=== PATIENT | male | born 1950 | race Caucasian/White ===

== ENCOUNTER 2017-10-15 12:48 | Emergency (ER) | payer OTHER ==
[2017-10-15 12:50] VITALS: O2SAT 100
[2017-10-15] MEDS ORDERED: LIDOCAINE HCL 1% PF 30 ML VIAL ONE (12:53)
[2017-10-15] MEDS ORDERED: IOHEXOL 350 MG/ML 10 ML VIAL (for RAD DIAG) IVCONTRAST ONE (13:13)
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
[2017-10-15] MEDS ORDERED: CEPH-460 PO ×2 (13:25→13:41)
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
[2017-10-15 13:29] LABS: AUTOMATED NEUTROPHIL # 10.6 TH/MM3 (1.8-7.7); BASOPHIL % 0.2 % (0.0-2.0); EOSINOPHIL # 0.1 TH/MM3 (0-0.4); EOSINOPHIL % 0.4 % (0.0-4.0); HEMATOCRIT 37.6 % (39.0-51.0); HEMOGLOBIN 12.9 GM/DL (13.0-17.0); LYMPH % 6.1 % (9.0-44.0); LYMPHOCYTE # 0.8 TH/MM3 (1.0-4.8); MEAN CELL VOLUME 88.5 FL (80.0-100.0); MEAN CORPUSCULAR HEMOGLOBIN 30.5 PG (27.0-34.0); MEAN CORPUSCULAR HGB CONC 34.5 % (32.0-36.0); MEAN PLATELET VOLUME 8.4 FL (7.0-11.0); MONO % 10.1 % (0.0-8.0); MONOCYTE # 1.3 TH/MM3 (0-0.9); NEUT % 83.2 % (16.0-70.0); PLATELET COUNT 264 TH/MM3 (150-450); RED BLOOD COUNT 4.25 MIL/MM3 (4.50-5.90); RED CELL DISTRIBUTION WIDTH 13.7 % (11.6-17.2); WHITE BLOOD COUNT 12.7 TH/MM3 (4.0-11.0)
[2017-10-15 13:38] LABS: INTERNATIONAL NORMALIZED RATIO 1.2 RATIO; PROTHROMBIN TIME - PATIENT 11.9 SEC (9.8-11.6)
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
[2017-10-21] MEDS ORDERED: CLIN300C5 PO (21:45)
== END 2017-10-15 15:00 | disposition home or self-care (01) ==
LOC: NEPI 12:48 → EDBD 12:48 → NEPD 15:00
DX: S21.112A Laceration without foreign body of left front wall of thorax without penetration into thoracic cavity, initial encounter (principal); I10 Essential (primary) hypertension; F17.200 Nicotine dependence, unspecified, uncomplicated; W18.30XA Fall on same level, unspecified, initial encounter; W26.9XXA Contact with unspecified sharp object(s), initial encounter; Y92.002 Bathroom of unspecified non-institutional (private) residence as the place of occurrence of the external cause
CPT/HCPCS: 12001; 71045; 71260; 80048; 85025; 85610; 85730; 86850; 86900; 86901; 99285; G0390; Q9967; 99291

== ENCOUNTER 2017-10-15 14:15 | Inpatient (IN) | payer OTHER ==
[~2017-10-15] VITALS: Ht 170.2 cm; Wt 70.0 kg
[~2017-10-15 14:15] MED LIST: CEPH-460 PO
[2017-10-15 14:36] VITALS: BP 132/75; PULSE 78; RESP 20; TEMP 98.2; O2SAT 98
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
[2017-10-15] MEDS ORDERED: LORazepam 1 MG TAB PO ONE (16:30)
[2017-10-15] MEDS ORDERED: HALOPERIDOL LACTATE 5 MG/ML AMP IM ONE (16:45)
[2017-10-15 22:05] VITALS: BP 149/77; PULSE 81; RESP 18; TEMP 98; O2SAT 99
[2017-10-16 06:50] VITALS: BP 107/58; PULSE 81; RESP 20; O2SAT 97
[2017-10-16] MEDS ORDERED: CEPHALEXIN MONOHYDRATE 500 MG CAP PO ONE (14:15)
[2017-10-16 16:05] VITALS: BP 139/72; PULSE 82; RESP 18
[2017-10-16] MEDS ORDERED: ALUMINUM/MAGNESIUM/SIMETH 30 ML CUP PO PRN (16:45)
[2017-10-16] MEDS ORDERED: LORazepam 1 MG TAB PO PRN (16:45)
[2017-10-16] MEDS ORDERED: LORazepam 0.5 MG TAB PO PRN (16:45)
[2017-10-16] MEDS ORDERED: ACETAMINOPHEN 325 MG TAB PO PRN (16:45)
[2017-10-16] MEDS ORDERED: MAGNESIUM HYDROXIDE SUSP 30 ML CUP PO PRN (16:45)
[2017-10-16] MEDS ORDERED: LORazepam 2 MG/ML VIAL IM PRN ×2 (16:45)
[2017-10-16] MEDS ORDERED: NICOTINE 4 MG/GUM CHEW PRN (18:00)
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
[2017-10-16 20:04] VITALS: BP 129/71; TEMP 98.5
[2017-10-16] MEDS: CEPHALEXIN MONOHYDRATE 500 MG CAP PO SCH (20:59)
[2017-10-16] MEDS ORDERED: INSULIN DETEMIR 100 UNITS/ML VIAL SQ SCH (21:00)
[2017-10-17] MEDS: CEPHALEXIN MONOHYDRATE 500 MG CAP PO SCH ×3 (06:00→21:41)
[2017-10-17 06:02] VITALS: BP 117/63; PULSE 85; RESP 18; TEMP 98.4; O2SAT 96
[2017-10-17 06:55] LABS: BICARBONATE 29.3 MEQ/L (21.0-32.0); BLOOD UREA NITROGEN 6 MG/DL (7-18); CALCIUM 8.8 MG/DL (8.5-10.1); CHLORIDE 102 MEQ/L (98-107); CHOLESTEROL 111 MG/DL (120-200); CREATININE 0.64 MG/DL (0.60-1.30); GLOMERULAR FILTRATION RATE 126 ML/MIN (>89); GLUCOSE,RANDOM 189 MG/DL (74-106); SODIUM (NA) 137 MEQ/L (136-145); TRIGLYCERIDES 61 MG/DL (42-150)
[2017-10-17 06:58] LABS: CHOLESTEROL/ HDL RATIO 3.22 RATIO; HDL CHOLESTEROL 34.4 MG/DL (40.0-60.0); LDL CHOLESTEROL 64 MG/DL (0-99)
[2017-10-17] MEDS ORDERED: NICOTINE 21 MG/24 HR PATCH T-DERMAL SCH (09:00)
[2017-10-17] MEDS: metFORMIN HCL 500 MG TAB PO SCH ×2 (09:55→18:02)
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
[2017-10-17] MEDS ORDERED: LORazepam 1 MG TAB PO PRN (12:30)
[2017-10-17] MEDS ORDERED: LORazepam 2 MG/ML VIAL IV PUSH PRN ×4 (12:30)
[2017-10-17] MEDS ORDERED: FLUMAZENIL 0.5 MG/5 ML VIAL IV PUSH PRN (12:30)
[2017-10-17] MEDS ORDERED: LORazepam 2 MG TAB PO PRN (12:30)
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
[2017-10-17 15:26] VITALS: BP 130/56; PULSE 83; RESP 18; TEMP 97.4; O2SAT 99
[2017-10-17 16:35] LABS: HEMOGLOBIN A1C 6.4 % (4.3-6.0)
[2017-10-17] MEDS ORDERED: INSULIN DETEMIR 100 UNITS/ML VIAL SQ SCH (21:00)
[2017-10-18] MEDS: CEPHALEXIN MONOHYDRATE 500 MG CAP PO SCH ×3 (05:46→21:09)
[2017-10-18 06:30] VITALS: BP 117/65; PULSE 84; RESP 17; TEMP 97.2; O2SAT 98
[2017-10-18] MEDS: THIAMINE HCL 100 MG TAB PO SCH (08:50)
[2017-10-18] MEDS: MULTIVITAMINS/MINERALS THERAPEUTIC TAB PO SCH (08:50)
[2017-10-18] MEDS: FOLIC ACID 1 MG TAB PO SCH (08:50)
[2017-10-18] MEDS: metFORMIN HCL 500 MG TAB PO SCH ×2 (08:51→18:07)
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
--- NOTE | 2017-10-18 09:51 | PD.TTN ---
Patient Problems 1. Discharge planning 2. Medication compliance 3. Knowledge deficit 4. Lack of coping skills Progress Toward Goals Provider Present: Dr. Cooper Parnell Provider Input: 10/18/17 - Dr. Travis requested this counselor look into home health options for this patient. Psychiatric Counselors Present: YANNI Eagle Psych Therapist Input: 10/18/17 - Patient was transferred to the [facility] unit yesterday and is new to this counselor. Per Dr. Parnell's request, counselor will look into patient's insurance in an effort to secure home health services. Group Spec/RT/OT/CARABALLO Present: BENY Gonzalez Discharge Plan SMA 10/18/17 - Patient will be discharged home when deemed appropriate by Dr. Parnell. Documentation Scribe: YANNI Eagle Date Resolved: Oct 18, 2017 Sarah Gage Oct 18, 2017 09:51
--- NOTE | 2017-10-18 10:32 | HHI.PYPN ---
Subjective Chief Complaint: Self-injury Remarks Patient seen and examined. Chart reviewed. Case discussed with nursing staff. No behavioral issues noted. On my examination today, the patient denies any suicidal or homicidal ideation. He continues to insist that he "spaced out" during his presenting self-injury. He has been evaluated by neurology and EEG read is pending. He does complain of anxiety, particularly around his impending nursing home, but he refuses any psychotropic medication management for this or any other issue when offered. No mood or psychotic symptoms. No physical complaints. When asked, patient says he has no one who could provide collateral information. Review of Systems Except as stated in HPI: all other systems reviewed are Neg Mental Status Examination Appearance: Appropriate Consciousness: Alert Orientation: x4 Motor Activity: Other (no motor abnormalities noted) Speech: Unremarkable Language: Adequate Fund of Knowledge: Adequate Attention and Concentration: Adequate Memory: Impaired (reports ongoing amnesia surrounding self-injurious episode, otherwise unremarkable) Mood: Appropriate Affect: Appropriate Thought Process & Associations: Intact Thought Content: Appropriate Hallucination Type: None Delusion Type: None Suicidal Ideation: No Suicidal Plan: No Suicidal Intention: No Homicidal Ideation: No Homicidal Plan: No Homicidal Intention: No Mental Status Exam Remarks Insight and judgment unclear. No signs of withdrawal noted. Results Labs Labs reviewed. Vitals/IOs Vital Signs Date Time Temp Pulse Resp B/P (MAP) Pulse Ox O2 Delivery O2 Flow Rate FiO2 10/18/17 06:30 97.2 84 17 117/65 (82) 98 10/16/17 06:50 Room Air Assessment & Plan Problem List: (1) Adjustment disorder with mixed disturbance of emotions and conduct ICD Codes: F43.25 - Adjustment disorder with mixed disturbance of emotions and conduct (2) Alcohol use ICD Codes: Z78.9 - Other specified health status Assessment & Plan Patient does complain of some anxiety, mild, but declines any psychotropic medication for this. Continue to monitor for safety on the inpatient unit. Neurology and hospitalist input noted and appreciated. Follow-up EEG results. Continue to monitor on an inpatient unit. Continue other medications and care as ordered. Justification for Cont. Inpt. Monitoring for impairment in safety, none noted Discharge Planning Pending outcome of observation Request HC Surrog/Guard Advoc?: No Tay Parnell MD Oct 18, 2017 10:31
--- NOTE | 2017-10-18 12:47 | M6 ---
cc: Alex Gordon MD 10/17/2017 EEG RECORD NUMBER: [id number] This is a 66-year-old with a history of a syncopal type episode. 8-11 Hz activity, 10-40 microvolts. Good anterior to posterior gradient followed by generalized slowing with transition into a drowsy state, stage I sleep. Good EEG variability reactivity. Slight increase in the faster frequency is noted. Reasonable driving with photic stimulation. Single lead EKG is showing sinus rhythm. INTERPRETATION: Normal awake sleep EEG. Clinical correlation. Alex Gordon MD MG/DL , 11:52 AM , 12:46 PM
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
[2017-10-18 18:13] VITALS: BP 118/68; PULSE 78; RESP 18; TEMP 98.6; O2SAT 99
[2017-10-18] MEDS ORDERED: INSULIN DETEMIR 100 UNITS/ML VIAL SQ SCH (21:00)
[2017-10-19 06:00] VITALS: BP 127/67; PULSE 83; RESP 16; TEMP 99.5; O2SAT 98
[2017-10-19] MEDS: CEPHALEXIN MONOHYDRATE 500 MG CAP PO SCH (06:00)
[2017-10-19] MEDS: FOLIC ACID 1 MG TAB PO SCH (09:03)
[2017-10-19] MEDS: THIAMINE HCL 100 MG TAB PO SCH (09:03)
[2017-10-19] MEDS: metFORMIN HCL 500 MG TAB PO SCH (09:03)
[2017-10-19] MEDS: MULTIVITAMINS/MINERALS THERAPEUTIC TAB PO SCH (09:03)
[2017-10-19] MEDS ORDERED: METF500 PO (11:03)
[2017-10-19] MEDS ORDERED: LEVEMIR SQ (11:03)
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
[2017-10-21] MEDS ORDERED: CLIN300C5 PO (21:45)
[2017-10-22] MEDS ORDERED: ARIP1INJ IM (08:28)
== END 2017-10-19 13:25 | disposition left against medical advice (07) | DRG 882 ==
LOC: NEPD 14:15 → NEDA 10-16 16:42 → H270 10-16 18:05 → H260 10-17 13:05
PROVIDERS: ADMIT Psychiatry & Neurology Psychiatry; ATTEND Psychiatry & Neurology Psychiatry
DX: F43.25 Adjustment disorder with mixed disturbance of emotions and conduct (principal); E11.621 Type 2 diabetes mellitus with foot ulcer; R45.851 Suicidal ideations; F17.290 Nicotine dependence, other tobacco product, uncomplicated; F32.9 Major depressive disorder, single episode, unspecified; F41.9 Anxiety disorder, unspecified; L97.529 Non-pressure chronic ulcer of other part of left foot with unspecified severity; L97.519 Non-pressure chronic ulcer of other part of right foot with unspecified severity; H35.30 Unspecified macular degeneration; E11.319 Type 2 diabetes mellitus with unspecified diabetic retinopathy without macular edema; Z79.4 Long term (current) use of insulin
CPT/HCPCS: 80048; 80061; 80307; 82948; 83036; 84443; 95819; 99285; J1630